=== PATIENT | female | born 1995 | race African-American/Black ===

== ENCOUNTER 2021-04-23 20:43 | Emergency (ER) | payer OTHER ==
[~2021-04-23] VITALS: Ht 167.6 cm; Wt 81.6 kg
[2021-04-23] MEDS ORDERED: ONDANSETRON HCL INJ 2MG/ML 2ML 2 MG/ML VIAL IV STA (21:55)
[2021-04-23] MEDS ORDERED: SODIUM CHLORIDE 0.9% 1000ML 1,000 ML IV SCH (22:00)
[2021-04-23] MEDS ORDERED: SODIUM CHLORIDE 0.9% 50ML 50 ML ONE (22:12)
[2021-04-23] MEDS ORDERED: IOPAMIDOL 370 MG/ML 200 ML INFUS..BTL INJ ONE (22:12)
[2021-04-23] MEDS ORDERED: ONDANSETRON HCL INJ 2MG/ML 2ML 2 MG/ML VIAL ONE (22:24)
[2021-04-23] MEDS ORDERED: SODIUM CHLORIDE 0.9% 1000ML 1,000 ML ONE (22:24)
[2021-04-24] MEDS ORDERED: DICYCLOMINE HCL20 MG PO (00:18)
[2021-04-24] MEDS ORDERED: ONDANSETRON ODT4 MG PO (00:19)
[2021-04-24] MEDS ORDERED: ONDANSETRON HCL 4 MG ORAL DISINTEGRATING TAB ONE (00:28)
== END 2021-04-24 00:54 | disposition home or self-care (01) ==
LOC: FSED 21:16
DX: R10.31 Right lower quadrant pain (principal); R11.2 Nausea with vomiting, unspecified; K38.9 Disease of appendix, unspecified; Z85.038 Personal history of other malignant neoplasm of large intestine
CPT/HCPCS: 74177; 80053; 81003; 81025; 85025; 99284; J2405; J7030; Q0162; Q9967